=== PATIENT | male | born 1940 | race Two or more races ===

== ENCOUNTER 2022-06-15 11:01 | Emergency (ER) | payer OTHER ==
[~2022-06-15] VITALS: Ht 182.9 cm; Wt 78.6 kg
[2022-06-15] MEDS ORDERED: HYDROcodone-ACET 10/325MG TAB PO ONE (11:30)
[2022-06-15 11:46] LABS: Basophils # (auto) 0 10 ^3/uL (0-0.2); Basophils % (auto) 0.3 % (0.0-2.0); Eosinophils # (auto) 0 10 ^3/uL (0-0.8); Hematocrit 39.4 % (41.0-53.0); Lymphocytes # (auto) 1.4 10 ^3/uL (0.4-5.4); Lymphocytes % (auto) 14.5 % (10.0-50.0); Mean Corpuscular Hemoglobin 30.1 pg (28.0-32.0); Mean Corpuscular Volume 91.3 fL (80.0-100.0); Monocytes # (auto) 1.1 10 ^3/uL (0-1.3); Monocytes % (auto) 11.3 % (0.0-12.0); Neutrophils % (auto) 73.9 % (37.0-80.0); Nucleated Red Blood Cells % 0.1 %; Red Blood Cells 4.31 10^6/uL (4.5-5.90); Red Cell Distribution Width 15.1 % (11.8-14.3); White Blood Cell 9.4 10^3/uL (4.4-10.8)
[2022-06-15 12:29] LABS: BUN/Creatinine Ratio 19.6 (10.0-20.0); Bilirubin, Total 1.2 mg/dL (0.2-1.0); Calcium 8.5 mg/dL (8.5-10.1); Potassium 4.2 mmol/L (3.5-5.1); Total Protein 6.8 g/dL (6.4-8.2)
[2022-06-15 12:30] LABS: Albumin 3.4 g/dL (3.4-5.0)
[2022-06-15] MEDS ORDERED: PANT40TA2 PO ×3 (13:14→14:06)
[2022-06-15] MEDS ORDERED: PRED20TA2 PO ×3 (13:14→14:06)
[2022-06-15 13:49] VITALS: BP 142/76
== END 2022-06-15 14:04 | disposition home or self-care (01) ==
LOC: ER 11:01
DX: M50.30 Other cervical disc degeneration, unspecified cervical region (principal); M19.011 Primary osteoarthritis, right shoulder; R51.9 Headache, unspecified; I10 Essential (primary) hypertension
CPT/HCPCS: 36415; 70450; 72125; 73030; 80053; 84484; 85025; 93005